=== PATIENT | female | born 1970 | race Caucasian/White ===

== ENCOUNTER 2020-12-31 12:10 | Emergency (ER) | payer OTHER ==
[~2020-12-31] VITALS: Ht 160 cm; Wt 72.6 kg
[~2020-12-31 12:10] MED LIST: ALLEGRA ALLERG180 MG PO; ALLERGY SHOTS; BENTYL 10 MG CA10 M1 PO; CENTRUM SILVER1 EAC4 PO; FLONASE 0.05%50 MCG NASAL; MIRALAX17 GM PO; PROTONIX40 M1 PO; SINGULAIR 10 MG10 M1 PO; SUDAFED 12-HOU120 MG PO
[2020-12-31 12:24] LABS: ABSOLUTE LYMPHOCYTES 1.5 thou/uL (0.8-5.3); ABSOLUTE MONOCYTES 0.4 thou/uL (0.0-1.2); ABSOLUTE NEUTROPHILS 6.3 thou/uL (1.6-8.1); BASOPHILS 0.4 %; EOSINOPHILS 0.1 %; HEMATOCRIT 44.7 % (37.0-47.0); HEMOGLOBIN 15.6 gm/dL (12.0-15.0); LYMPHOCYTES 17.7 %; MCH 31.5 pg (26.0-34.0); MCV 89.9 fL (80.0-100.0); MONOCYTES 4.9 %; MPV 6.6 fl. (7.2-11.1); NUCLEATED RBCS 0 /100WBC; PLATELET COUNT* 337 thou/uL (150-400); POLYS 76.9 %; RBC 4.97 mil/uL (4.20-5.00); RDW-CV 12.9 % (10.5-14.5); WBC 8.2 thou/uL (4.0-11.0)
[2020-12-31] MEDS ORDERED: MOBIC15 MG PO (12:26)
[2020-12-31] MEDS ORDERED: FALMINA1 EACH PO (12:27)
[2020-12-31] MEDS ORDERED: VITAMIN D310 MC4 (12:28)
[2020-12-31] MEDS ORDERED: SLEEP AID50 MG PO (12:28)
[2020-12-31] MEDS ORDERED: GLUCOSAMIN-CHO1 EACH (12:28)
[2020-12-31 12:34] LABS: ANION GAP 10 mmol/L (7-16); BUN 11 mg/dL (7-18); CALCIUM 9.1 mg/dL (8.5-10.1); CHLORIDE 100 mmol/L (98-107); CO2 27 mmol/L (21-32); GLUCOSE 116 mg/dL (70-99); POTASSIUM 3.5 mmol/L (3.5-5.1); SODIUM 137 mmol/L (136-145)
[2020-12-31 12:47] LABS: ALBUMIN 3.7 g/dL (3.4-5.0); ALKALINE PHOSPHATASE 128 U/L (46-116); CK-MB MASS < 0.5 ng/mL (<0.5-3.6); LIPASE 122 U/L (73-393); MAGNESIUM 1.9 mg/dL (1.8-2.4); NT-PRO BRAIN NAT PEPTIDE 159 pg/mL (<300); SGOT 19 U/L (15-37); SGPT 23 U/L (30-65); TOTAL BILIRUBIN 0.6 mg/dL (<0.1-1.0); TOTAL PROTEIN 8.6 g/dL (6.4-8.2)
[2020-12-31 13:36] VITALS: BP 163/101
--- NOTE | 2020-12-31 15:49 | EKG ---
[place] [address] ELECTROCARDIOGRAM REPORT Name: MOHSEN JIMÉNEZ Room: [facility]#: [id number] Admission: 12/31/20 Attend Phys: Discharge: 12/31/20 Date of : 72 Date of Service: 12/31/20 1218 Report #: [id number] THIS REPORT FOR: //name// [facility] ED Test Date: 2020-12-31 Test Time: 12:18:32 Pat Name: MOHSEN JIMÉNEZ Department: Room: Gender: F Archives Specialist: : [id number] Requested By: Darrick Cardenas Order Number: [id number] MD: Juan Ramon Mccormick Measurements Intervals [place] Rate: 100 P: 75 [place]: 140 QRS: 19 QRSD: 89 T: 38 QT: 338 QTc: 436 Interpretive Statements Sinus tachycardia Probable left atrial enlargement Anterior infarct, old possible No previous ECG available for comparison Electronically Signed On 12-31-2020 15:49:17 CDT by Juan Ramon Mccormick [email or web address] <ELECTRONICALLY SIGNED> By: Juan Ramon Mccormick MD, [facility] 12/31/20 1549 1218 1218 Juan Ramon Mccormick MD, [facility] /EPI
== END 2020-12-31 13:38 | disposition home or self-care (01) ==
LOC: M.ERS 12:10
PROVIDERS: Family Medicine
DX: R07.89 Other chest pain (principal); I10 Essential (primary) hypertension; Z88.1 Allergy status to other antibiotic agents; Z79.1 Long term (current) use of non-steroidal anti-inflammatories (NSAID); Z79.2 Long term (current) use of antibiotics; Z79.899 Other long term (current) drug therapy